=== PATIENT | female | born 1980 | race Caucasian/White ===

== ENCOUNTER → 2016-06-21 | Outpatient (CLI) | payer BC ==
--- NOTE | 2016-06-21 16:50 | Diagnostic Imaging Report ---
PROCEDURE: US OB SINGLE FETUS <14 WKS. TECHNIQUE: Multiple real-time grayscale images were obtained over the gravid uterus in various projections. INDICATION: Size and date discrepancy. FINDINGS: There is a single live intrauterine fetus present. Fetus is active in variable position. heart rate is at 165 beats per minute. Placenta is posterior. biometric measurements are BPD 2.74 cm, head circumference 10.61 cm, abdominal circumference 8.10 cm, femur length 1.43 cm with estimated weight of 97 g. Amniotic fluid index appears normal. IMPRESSION: 14 week 6 day live intrauterine . Sonographic EDC of 12/14/2016. Dictated by: Dictated on workstation # [id number]
== END ==
LOC: RAD 14:41
PROVIDERS: ATTEND Obstetrics & Gynecology
DX: O26.842 Uterine size-date discrepancy, second trimester (principal); Z3A.14 14 weeks gestation of pregnancy
CPT/HCPCS: 76801

== ENCOUNTER → 2016-10-23 | Outpatient (CLI) | payer BC ==
[~2016-10-23] MED LIST: ACET1TAB43 PO; BENZ56AE2 TP; DOCU100C37 PO; FERR-74 PO; GLYB5TAB6 PO; IBUP-1773 PO; LEVO50TA6 PO
--- NOTE | 2016-10-23 17:17 | Diagnostic Imaging Report ---
INDICATION: Gestational diabetes. TECHNIQUE: Multiple real-time grayscale images were obtained over the gravid uterus. COMPARISON: 06/21/2016 FINDINGS: The heart rate is 149 beats per minute. position is cephalic. KHADRA is 15 cm. Biophysical profile criteria are met with total score of 8 out of 8. The growth parameters are: Biparietal diameter: 31 weeks and 6 days, at 22 percentile. Head circumference: 33 weeks and 0 day, at 23 percentile. Abdominal circumference: 33 weeks and 1 day, at 64 percentile. Femur length: 33 week and 1 day, at 50 percentile. These average at: 32 weeks and 6 days, compared to 32 weeks and 4 days based on MO of 12/14/2016. IMPRESSION: Live intrauterine . Biophysical profile score is 8 out of 8. Dictated by: Dictated on workstation # [id number]
== END ==
LOC: RAD 15:45
PROVIDERS: ATTEND Obstetrics & Gynecology
DX: Z36 Encounter for antenatal screening of mother (principal); O24.415 Gestational diabetes mellitus in pregnancy, controlled by oral hypoglycemic drugs; Z3A.32 32 weeks gestation of pregnancy
CPT/HCPCS: 76805; 76819

== ENCOUNTER → 2016-11-01 | Outpatient (CLI) | payer BC ==
--- NOTE | 2016-11-01 10:46 | Diagnostic Imaging Report ---
EXAMINATION: OB ultrasound, biophysical profile. INDICATION: Gestational diabetes. FINDINGS: heart rate is 155 beats per minute. Amniotic fluid index is 14.1 cm. The placenta is posterior with no placenta previa. presentation is cephalic. The biophysical profile criteria are all met with the total score of 8 out of 8. IMPRESSION: Biophysical profile score is 8 out of 8. Dictated by: Dictated on workstation # [id number]
== END ==
LOC: RAD 08:50
PROVIDERS: ATTEND Obstetrics & Gynecology
DX: O24.415 Gestational diabetes mellitus in pregnancy, controlled by oral hypoglycemic drugs (principal); Z3A.00 Weeks of gestation of pregnancy not specified
CPT/HCPCS: 76819

== ENCOUNTER → 2016-11-08 | Outpatient (CLI) | payer BC ==
--- NOTE | 2016-11-08 13:34 | Diagnostic Imaging Report ---
INDICATION: Gestational diabetes. FINDINGS: There is single live intrauterine fetus. Fetus is vertex. heart rate of 129 beats per minute. Placenta is posterior with no evidence of previa. Placenta is estimated grade 2. There is good activity with normal breathing. Amniotic fluid index is normal. IMPRESSION: Normal biophysical profile scoring 8 of potential 8 points by ultrasound. Dictated by: Dictated on workstation # [id number]
== END ==
LOC: RAD 11:56
PROVIDERS: ATTEND Obstetrics & Gynecology
DX: O24.415 Gestational diabetes mellitus in pregnancy, controlled by oral hypoglycemic drugs (principal); Z3A.00 Weeks of gestation of pregnancy not specified
CPT/HCPCS: 76819

== ENCOUNTER 2016-12-05 19:00 | Inpatient (IN) | payer BC ==
[~2016-12-05] VITALS: Ht 162.6 cm; Wt 121.1 kg
[2016-12-05 19:20] VITALS: BP 137/92
[2016-12-05] MEDS ORDERED: NS IV 1000 ML 2,000 ML ONE (20:03)
[2016-12-05] MEDS ORDERED: MISOPROSTOL 100 MCG (CYTOTEC) TAB PO ONE (20:30)
[2016-12-05] MEDS ORDERED: NS IV 1000 ML 1,000 ML IV ONE (21:00)
[2016-12-05] MEDS ORDERED: MINERAL OIL CONCENTRATE 99.9% 15 ML UDC TOP PRN (21:00)
[2016-12-05 21:02] LABS: BASOPHILS % (AUTO) 0 % (0-10); EOSINOPHILS # (AUTO) 0.1 10^3/uL (0.0-0.3); EOSINOPHILS % (AUTO) 1 % (0-10); LYMPHOCYTES % (AUTO) 16 % (12-44); MEAN CORPUSCULAR HEMOGLOBIN 32 PG (25-34); MEAN CORPUSCULAR HGB CONC 33 G/DL (32-36); MEAN CORPUSCULAR VOLUME 96 FL (80-99); MEAN PLATELET VOLUME 10.3 FL (7.4-10.4); MONOCYTES # (AUTO) 1.2 X 10^3 (0.0-1.0); MONOCYTES % (AUTO) 10 % (0-12); NEUTROPHILS % (AUTO) 73 % (42-75); PLATELET COUNT 268 10^3/uL (130-400); RED BLOOD COUNT 3.79 10^6/uL (4.35-5.85); RED CELL DISTRIBUTION WIDTH 13.4 % (10.0-14.5); WHITE BLOOD COUNT 12.4 10^3/uL (4.3-11.0)
[2016-12-05 21:02] LABS: BILIRUBIN,URINE NEGATIVE (NEGATIVE); KETONES,URINE NEGATIVE (NEGATIVE); LEUKOCYTE ESTERASE ,URINE NEGATIVE (NEGATIVE); NITRITE,URINE NEGATIVE (NEGATIVE); PH,URINE 5 (5-9); PROTEIN,URINE 2+ (NEGATIVE); UROBILINOGEN,URINE NORMAL (NORMAL)
[2016-12-05 21:08] LABS: CALCIUM OXALATE CRYSTALS,UR MODERATE /LPF
[2016-12-05 21:13] LABS: ALANINE AMINOTRANSFERASE 19 U/L (0-55); ALBUMIN 3.2 GM/DL (3.2-4.5); ANION GAP 10 MMOL/L (5-14); ASPARTATE AMINO TRANSFERASE 13 U/L (5-34); BILIRUBIN,TOTAL 0.2 MG/DL (0.1-1.0); BLOOD UREA NITROGEN 11 MG/DL (7-18); BUN/CREATININE RATIO 17; CALCIUM 8.8 MG/DL (8.5-10.1); CARBON DIOXIDE 20 MMOL/L (21-32); CHLORIDE 110 MMOL/L (98-107); CREATININE SERUM 0.65 MG/DL (0.60-1.30); GFR ESTIMATED > 60; GLUCOSE 112 MG/DL (70-105); POTASSIUM 3.5 MMOL/L (3.6-5.0); SODIUM 140 MMOL/L (135-145)
[2016-12-05] MEDS: NS IV 1000 ML 1,000 ML IV SCH (21:14)
[2016-12-05] MEDS ORDERED: LEVO50TA6 PO (22:01)
[2016-12-05] MEDS ORDERED: GLYB5TAB6 PO (22:01)
[2016-12-05] MEDS: CATHETER FLUSH 10 ML SYR IV SCH (22:07)
[2016-12-06] VITALS (48 sets, daily range): BP systolic 90–165; BP diastolic 51–100
[2016-12-06] MEDS: MISOPROSTOL 100 MCG (CYTOTEC) TAB PO SCH ×2 (01:03→04:57)
[2016-12-06] MEDS: NS IV 1000 ML 1,000 ML IV SCH ×2 (05:00→13:23)
[2016-12-06] MEDS: CATHETER FLUSH 10 ML SYR IV SCH (06:18)
[2016-12-06] MEDS ORDERED: OXYTOCIN/NORMAL SALINE 500 ML IV SCH (08:40)
--- NOTE | 2016-12-06 09:59 | History & Physical-OB ---
OB - Chief Complaint & HPI Date/Time Date of Admission: Date of Admission: Dec 05, 2016 at 7:15 pm Time Seen by Provider: 08:20 Chief Complaint/History OB-Reason for Admission/Chief: Induction of Labor Hx : 6 Hx Para: 3 Expected Date of Delivery: Dec 14, 2016 Gestational Age in Weeks: 38 Gestational Age in Days: 6 Indication for induction: medical complication (GDMA2, AMA, Hypothyroidism) Admission Nurse Assessment Rev: Yes History of Labs A pos Antibody neg RI RPR NR HBsAg NR HIV NR GC neg GBS neg Quad screen abn + for DS, - FFC DNA Allergies and Home Medications Allergies Coded Allergies: No Known Drug Allergies (Unverified , 12/05/16) Home Medications Glyburide 5 Mg Tablet, 5 MG PO, (Reported) Levothyroxine Sodium 50 Mcg Tablet, 50 MCG PO DAILY, (Reported) OB - History Hx of Present Care: Yes Ultrasounds: Normal mid trimester US Obstetrical Complications: Gestational Diabetes, Autoimmune Disease ( Subclinical hypothyroidism), Other (Abn Quad screen, AMA) Medical Complications: None Delivery History Adverse Rxn to Tranfusion: No Patient Past Medical History BMI 38 Subclinical hypothyroidism Social History/Family History Recent Infectious Disease Expo: No Alcohol Use: Denies Use Recreational Drug Use: No Immunizations Hepatitis A: Yes Hepatitis B: Yes OB - Admission Exam Physical Exam Date Seen by Provider: Dec 06, 2016 Time Seen by Provider: 09:58 Vitals: Vital Signs 12/06/16 08:02 Temp 98.1 Pulse 88 Resp 16 B/P (MAP) 132/88 HEENT: NCAT Heart: Rhythm Normal Lungs: Clear Abdomen: Gravid Extremities: Normal Reflexes: Normal Cervical Dilatation: 3cm Effacement: 75% Station: -1 Membranes: Intact Heart Rate: 130's Accelerations: Accelerations Present Decelerations: No Decelerations Short Term Variability: Present [facility]it[facility]iary Variability: Average (6-25) Contractions on Admission: 6-10 Minutes Apart Intensity: Mild Machado Scoring Tool (Modified) Dilation (cm): 3-4cm (2) Effacement (%): 51-79% (2) Cervix Consistency: Soft (2) Cervix Position: Posterior (0) Add 1 point for: Each previous vaginal delivery (1) Machado Score: 10 Labs Laboratory Tests Test 12/05/16 19:40 12/05/16 20:33 Range/Units Urine Color YELLOW Urine Clarity CLEAR Urine pH 5 5-9 Urine Specific [place] 1.025 H 1.016-1.022 Urine Protein 2+ H NEGATIVE Urine Glucose (UA) 2+ H NEGATIVE Urine Ketones NEGATIVE NEGATIVE Urine Nitrite NEGATIVE NEGATIVE Urine Bilirubin NEGATIVE NEGATIVE Urine Urobilinogen NORMAL NORMAL MG/DL Urine Leukocyte Esterase NEGATIVE NEGATIVE Urine RBC (Auto) NEGATIVE NEGATIVE Urine RBC NONE /HPF Urine WBC NONE /HPF Urine Crystals PRESENT H /LPF Urine Calcium Oxalate Crystals MODERATE H /LPF Urine Bacteria FEW H /HPF Urine Casts NONE /LPF Urine Mucus TRACE /LPF Urine Culture Indicated NO White Blood Count 12.4 H 4.3-11.0 10^3/uL Red Blood Count 3.79 L 4.35-5.85 10^6/uL Hemoglobin 12.0 11.5-16.0 G/DL Hematocrit 36 35-52 % Mean Corpuscular Volume 96 80-99 FL Mean Corpuscular Hemoglobin 32 25-34 PG Mean Corpuscular Hemoglobin Concent 33 32-36 G/DL Red Cell Distribution Width 13.4 10.0-14.5 % Platelet Count 268 130-400 10^3/uL Mean Platelet Volume 10.3 7.4-10.4 FL Neutrophils (%) (Auto) 73 42-75 % Lymphocytes (%) (Auto) 16 12-44 % Monocytes (%) (Auto) 10 0-12 % Eosinophils (%) (Auto) 1 0-10 % Basophils (%) (Auto) 0 0-10 % Neutrophils # (Auto) 9.0 H 1.8-7.8 X 10^3 Lymphocytes # (Auto) 2.0 1.0-4.0 X 10^3 Monocytes # (Auto) 1.2 H 0.0-1.0 X 10^3 Eosinophils # (Auto) 0.1 0.0-0.3 10^3/uL Basophils # (Auto) 0.0 0.0-0.1 10^3/uL Sodium Level 140 135-145 MMOL/L Potassium Level 3.5 L 3.6-5.0 MMOL/L Chloride Level 110 H 98-107 MMOL/L Carbon Dioxide Level 20 L 21-32 MMOL/L Anion Gap 10 5-14 MMOL/L Blood Urea Nitrogen 11 7-18 MG/DL Creatinine 0.65 0.60-1.30 MG/DL Estimat Glomerular Filtration Rate > 60 BUN/Creatinine Ratio 17 Glucose Level 112 H 70-105 MG/DL Calcium Level 8.8 8.5-10.1 MG/DL Total Bilirubin 0.2 0.1-1.0 MG/DL Aspartate Amino Transf (AST/SGOT) 13 5-34 U/L Alanine Aminotransferase (ALT/SGPT) 19 0-55 U/L Alkaline Phosphatase 105 40-136 U/L Total Protein 6.0 L 6.4-8.2 GM/DL Albumin 3.2 3.2-4.5 GM/DL OB - Assessment/Plan/Diagnosis Assessment Assessment: induction of labor Plan Plan: Induction Induction Method: per Misoprostol Protocol Discharge Diagnosis Diagnosis: 36 yo @ 38.6 AMA Subclinical hypothyroidism GDMA 2 - glyburide Abn Quad +T21, Negative FFC DNA GBS neg DARYN ZAMORA DO Dec 06, 2016 9:59 am
[2016-12-06] MEDS ORDERED: SUFENTA 0.6MCG/ML BUPIVA 0.125 100 ML ONE (12:32)
[2016-12-06] MEDS ORDERED: BUPIVACAINE 0.25% 30 ML (SENSORCAINE) VIAL ONE (12:45)
[2016-12-06] MEDS ORDERED: LACTATED RINGERS 1,000 ML IV ONE (13:14)
[2016-12-06] MEDS ORDERED: ONDANSETRON 4 MG/2 ML (SDV) Z0FRAN IV PRN (13:15)
[2016-12-06] MEDS ORDERED: NALOXONE 0.4 MG/ML 1 ML (NARCAN) VIAL IV PRN (13:15)
[2016-12-06] MEDS ORDERED: EPIDURAL (SUFENTA 0.6MCG/ML BUPIVA 0.125%) 100 ML BAG EPI SCH (13:15)
[2016-12-06] MEDS ORDERED: LIDOCAINE/EPI 2% 1:200,00 (XYLOCAINE) 10 ML VIAL ONE (15:38)
[2016-12-06] MEDS: OXYTOCIN/NORMAL SALINE 500 ML IV SCH ×2 (15:59→16:28)
[2016-12-06] MEDS ORDERED: MEASLES,MUMPS,RUBELLA 1 EA INJ SQ ONE (16:15)
[2016-12-06] MEDS ORDERED: APAP 300 MG/CODEINE 30 MG (TYLENOL #3) TAB PO PRN (16:15)
[2016-12-06] MEDS ORDERED: WITCH HAZEL(TUCKS) 40 EA JAR TOP PRN (16:15)
[2016-12-06] MEDS ORDERED: TETANUS,DIPTH,PERTUSS P/F (BOOSTRIX) 0.5 ML VIAL IM ONE (16:15)
[2016-12-06] MEDS ORDERED: DIBUCAINE (NUPERCAINAL) 1% OINT 30 GM TOP PRN (16:15)
[2016-12-06] MEDS ORDERED: BENZOCAINE/MENTHOL (DERMOPLAST) 56 ML CAN TP PRN (16:15)
--- NOTE | 2016-12-06 16:22 | OB Labor & Delivery Record ---
L&D History Date of Service Date of Service: Dec 06, 2016 History Expected Date of Delivery: Dec 14, 2016 Gestational Age in Weeks: 38 Hx : 6 Hx Para: 3 Complications Events: Gestational Diabetes, Labor Augmentation, Routine care (subclinical hypothyroidism, advanced maternal age, abnormal quad screen increased risk for Down's, normal free cell DNA) Operative Indications ([place]: N/A-Vaginal Delivery Intrapartal Events: Abruptio Placenta Other Complications Episodes of prolonged bradycardia in the 80s in the second stage of labor. Repetitive variable and late decelerations during the first stage of labor. L&D Stage1 Stage One Onset of Labor - Date: Dec 06, 2016 Monitors and Tracing Monitor Mode: External Heart Rate: 130 Monitor Decelerations: Late Station: -1 Clinical Secretary Variability: Average (6-10) Short Term Variability: Present Presentation: Vertex Vital Signs VS - Last 72 Hours, by Label 12/05/16 12/05/16 12/06/16 12/06/16 19:20 20:30 00:00 04:57 Temp 99.3 98.8 99.1 Pulse 102 91 90 Resp 18 18 16 B/P (MAP) 137/92 105/51 122/62 12/06/16 12/06/16 12/06/16 08:02 09:05 09:20 Temp 98.1 Pulse 88 81 83 Resp 16 18 18 B/P (MAP) 132/88 111/67 149/93 Signs of Distress by FHT Signs of Distress There were episodes of recurrent late and variable decelerations. Late decelerations were occurring prior to placing the patient in hands and knees. Once this was done deep variable decelerations that were repetitive down into the 70s to 80s were noted. There was good return to baseline and good variability so we proceeded to attempt to deliver vaginally. In this fashion the patient progressed to complete and +1 station when an episode of prolonged bradycardia down in the 80s was noted. Rupture of Membranes Amniotic Membrane Rupture Time: 08 Amniotic Membrane Fluid Desc.: Bloody Vaginal Bleeding Description: Heavy Show Progress/Notes There was passage of blood and clots and bleeding throughout the first stage of labor suspicion for underlying placental abruption was explained with the patient however fetus remained stable onset of the patient so we proceeded with the augmentation of labor L&D Stage2 Stage Two Stage II Date: Dec 06, 2016 Monitors and Tracing Monitor Mode: External Heart Rate: 130 Monitor Decelerations: Variable Retirement Variability: Average (6-10) Short Term Variability: Present Position: Right Occiput Anterior Presentation: Vertex Cord Descript/Complications Cord Vessel Description: 3 Vessels Complications Nuchal cord reduced 1 Delivery Type Infant Delivery Method: Spontaneous Vaginal Anterior Shoulder: Right Episiotomy/Perineal Laceration Laceraction(s)/Extensions: Yes Episiotomy Description: Midline, Vaginal Extension/lac, 1st degree Degree (describe repair) Midline vaginal laceration repaired using 3-0 Rapide Vicryl Condition of Infant Delivery 1 minute Comment: 8 5 minute Comment: 9 Notes Live male infant weighing 7 lbs. 8 oz. Condition of Condition of Infant: Living Exam: No Observed Abnormalities Resuscitation Resuscitation: N/A - Spontaneous Resp L&D Stage3 Stage Three Stage III Date: Dec 06, 2016 Pictocin Pitocin Administration mu/min: 2 Pitocin ml/hr: 2 Pitocin Administration Comment: Pitocin increase to 30 mU/m at delivery of placenta Placenta Delivery Placenta Delivery: Spontaneous Delivery Summary Summary blood loss >1000ml: No Vaginal blood loss >500ml: No 350 Attending at delivery: Daryn Zamora DO Condition of Delivery Examined: Cervix Examined, Uterus Explored Post Hemorrhage: No Condition of Mother stable Condition of Infant (s) stable DARYN ZAMORA DO Dec 06, 2016 4:22 pm
[2016-12-06] MEDS: IBUPROFEN 600 MG (MOTRIN) TAB PO SCH (17:00)
[2016-12-06] MEDS ORDERED: CATHETER FLUSH 10 ML SYR IV SCH (22:00)
[2016-12-07] VITALS: BP 116/69
[2016-12-07] MEDS: IBUPROFEN 600 MG (MOTRIN) TAB PO SCH ×4 (00:01→18:20)
[2016-12-07] MEDS: DOCUSATE SODIUM 100 MG (COLACE) CAP PO SCH ×2 (00:02→09:58)
[2016-12-07 04:25] VITALS: BP 113/71
[2016-12-07 06:28] LABS: BASOPHILS % (AUTO) 0 % (0-10); EOSINOPHILS # (AUTO) 0.2 10^3/uL (0.0-0.3); EOSINOPHILS % (AUTO) 2 % (0-10); LYMPHOCYTES # (AUTO) 2.2 X 10^3 (1.0-4.0); LYMPHOCYTES % (AUTO) 17 % (12-44); MEAN CORPUSCULAR HEMOGLOBIN 32 PG (25-34); MEAN CORPUSCULAR HGB CONC 33 G/DL (32-36); MEAN CORPUSCULAR VOLUME 97 FL (80-99); MEAN PLATELET VOLUME 10.2 FL (7.4-10.4); MONOCYTES # (AUTO) 1.3 X 10^3 (0.0-1.0); MONOCYTES % (AUTO) 10 % (0-12); NEUTROPHILS # (AUTO) 8.9 X 10^3 (1.8-7.8); NEUTROPHILS % (AUTO) 71 % (42-75); PLATELET COUNT 203 10^3/uL (130-400); RED BLOOD COUNT 3.38 10^6/uL (4.35-5.85); RED CELL DISTRIBUTION WIDTH 13.3 % (10.0-14.5); WHITE BLOOD COUNT 12.7 10^3/uL (4.3-11.0)
[2016-12-07 08:00] VITALS: BP 122/81
[2016-12-07] MEDS ORDERED: BENZ56AE2 TP (09:02)
[2016-12-07] MEDS ORDERED: ACET1TAB43 PO (09:02)
[2016-12-07] MEDS ORDERED: FERR-74 PO (09:02)
[2016-12-07] MEDS ORDERED: IBUP-1773 PO (09:02)
[2016-12-07] MEDS ORDERED: DOCU100C37 PO (09:02)
--- NOTE | 2016-12-07 09:04 | Discharge Inst-Women's Service ---
Discharge Inst-Women's Serv Depart Medication/Instructions New, Converted or Re-Newed RX: RX on Chart Consults/Follow Up Additional Follow Up: Yes Orders/Referrals Dr. Zamora in 6 weeks Activity Activity: Activity as Tolerated Driving Instructions: No Driving for 1 Week NO SMOKING: NO SMOKING Nothing Inside Vagina: No Douching, No [place], No Tampons Diet Discharge Diet: No Restrictions Symptoms to Report to : Bleeding Excessive, Pain Increased, Fever Over 101 Degrees F, Vaginal Bleeding Increase, Questions/Concerns For Any Problems or Questions: Contact Your Physician Skin/Wound Care Bathing Instructions: Shower (x 2 weeks) DARYN ZAMORA DO Dec 07, 2016 09:04
--- NOTE | 2016-12-07 09:35 | Progress Note-Standard ---
Standard Progress Note Progress Notes/Assess & Plan Date Seen by Provider: Dec 07, 2016 Time Seen by Provider: 09:32 Progress/Assessment & Plan Patient doing well PPD 1 NVD. Reports good pain control, ambulating and voiding freely. Lochia light Vital Sign - Last 24 Hours 12/06/16 12/06/16 12/06/16 12/06/16 09:35 09:51 10:07 10:20 Temp 98.7 Pulse 83 88 83 85 Resp 18 18 18 18 B/P (MAP) 158/89 151/74 109/59 108/59 12/06/16 12/06/16 12/06/16 12/06/16 10:36 10:50 11:05 11:20 Pulse 81 76 73 62 Resp 18 18 18 18 B/P (MAP) 165/81 152/72 118/71 120/68 12/06/16 12/06/16 12/06/16 12/06/16 11:35 11:50 12:05 12:22 Temp 97.7 Pulse 74 62 71 82 Resp 18 18 18 18 B/P (MAP) 131/84 134/83 134/83 138/78 O2 Delivery Room Air Room Air Room Air Non Rebreather O2 Flow Rate 15.00 12/06/16 12/06/16 12/06/16 12/06/16 12:37 12:53 13:02 13:05 Pulse 88 67 78 85 Resp 18 18 18 18 B/P (MAP) 135/80 128/74 164/100 164/100 Pulse Ox 100 O2 Delivery Non Rebreather Non Rebreather Non Rebreather Non Rebreather O2 Flow Rate 15.00 15.00 15.00 15.00 17 12/06/16 12/06/16 12/06/16 13:08 13:10 13:14 13:17 Pulse 101 97 98 94 Resp 18 18 18 18 B/P (MAP) 164/100 141/72 115/51 100/51 Pulse Ox 100 O2 Delivery Non Rebreather Non Rebreather Non Rebreather Room Air O2 Flow Rate 15.00 15.00 15.00 1817 17 17 12/06/16 13:20 13:23 13:25 13:28 Pulse 90 90 95 74 Resp 18 18 18 18 B/P (MAP) 90/54 95/52 98/53 98/53 Pulse Ox 99 99 99 O2 Delivery Room Air Room Air Non Rebreather Non Rebreather O2 Flow Rate 15.00 15.00 12/06/16 12/06/16 12/06/16 12/06/16 13:30 13:34 13:36 13:40 Pulse 77 76 83 73 Resp 18 18 18 18 B/P (MAP) 94/53 94/52 96/53 104/58 Pulse Ox 100 100 100 O2 Delivery Non Rebreather Non Rebreather Non Rebreather Non Rebreather O2 Flow Rate 15.00 15.00 15.00 15.00 12/06/16 12/06/16 12/06/16 12/06/16 13:43 13:50 13:55 14:00 Pulse 59 66 62 63 Resp 18 18 18 18 B/P (MAP) 103/58 100/51 99/52 99/54 Pulse Ox 100 100 100 100 O2 Delivery Non Rebreather Non Rebreather Non Rebreather Non Rebreather O2 Flow Rate 15.00 15.00 15.00 15.00 12/06/16 12/06/16 12/06/16 12/06/16 14:15 14:30 14:45 15:02 Temp 98.4 Pulse 55 71 83 75 Resp 18 18 18 18 B/P (MAP) 97/56 106/59 104/72 106/59 Pulse Ox 100 100 O2 Delivery Non Rebreather Non Rebreather Room Air Room Air O2 Flow Rate 15.00 15.00 12/06/16 12/06/16 12/06/16 12/06/16 15:15 15:30 16:14 16:44 Temp 98.6 Pulse 74 78 91 87 Resp 18 18 18 18 B/P (MAP) 141/77 128/73 107/59 122/59 O2 Delivery Non Rebreather Non Rebreather Room Air Room Air O2 Flow Rate 15.00 15.00 12/06/16 12/06/16 12/06/16 12/07/16 16:59 17:46 19:30 00:00 Temp 97.8 Pulse 85 80 97 97 Resp 18 18 18 18 B/P (MAP) 122/55 129/75 123/70 116/69 Pulse Ox 98 98 O2 Delivery Room Air Room Air Room Air Room Air 12/07/16 12/07/16 04:25 08:00 Temp 97.2 Pulse 76 79 Resp 18 18 B/P (MAP) 113/71 122/81 Pulse Ox 100 99 O2 Delivery Room Air Room Air Uterine fundus firm and below umbilicus Laboratory Tests Test 12/06/16 21:40 12/07/16 06:10 Range/Units White Blood Count 12.7 H 4.3-11.0 10^3/uL Red Blood Count 3.38 L 4.35-5.85 10^6/uL Hemoglobin 10.7 L 11.5-16.0 G/DL Hematocrit 33 L 35-52 % Mean Corpuscular Volume 97 80-99 FL Mean Corpuscular Hemoglobin 32 25-34 PG Mean Corpuscular Hemoglobin Concent 33 32-36 G/DL Red Cell Distribution Width 13.3 10.0-14.5 % Platelet Count 203 130-400 10^3/uL Mean Platelet Volume 10.2 7.4-10.4 FL Neutrophils (%) (Auto) 71 42-75 % Lymphocytes (%) (Auto) 17 12-44 % Monocytes (%) (Auto) 10 0-12 % Eosinophils (%) (Auto) 2 0-10 % Basophils (%) (Auto) 0 0-10 % Neutrophils # (Auto) 8.9 H 1.8-7.8 X 10^3 Lymphocytes # (Auto) 2.2 1.0-4.0 X 10^3 Monocytes # (Auto) 1.3 H 0.0-1.0 X 10^3 Eosinophils # (Auto) 0.2 0.0-0.3 10^3/uL Basophils # (Auto) 0.0 0.0-0.1 10^3/uL Diagnosis PPD 1 NVD BMI 45 Subclinical hypothyroidism GDMA2 P: Continue routine pp care ANticipate dc later today or tomorrow pending release PP precautions reviewed. HBsAg had no lab report, but was marked as positive in the records. Repeat HBsAg ordered as well as core. DARYN ZAMORA DO Dec 07, 2016 9:35 am
[2016-12-07] MEDS: FERROUS SULF 325 MG (IRON) TAB PO SCH (09:58)
[2016-12-07 12:00] VITALS: BP 139/92
--- NOTE | 2016-12-07 14:22 | Anesthesia-Regional Post-Op ---
Regional Patient Condition Mental Status: Alert, Oriented x3 Circulation: Same as Pre-Op Headache: Absent Sensation: Full Recovery Motor Block: Absent Post Op Complications Complications None Follow Up Care/Instructions Patient Instructions None needed. Anesthesia/Patient Condition Patient is doing well, no complaints, stable vital signs, no apparent adverse anesthesia problems. No complications reported per nursing. BEN WAGNER CRNA Dec 07, 2016 14:22
[2016-12-07 18:20] VITALS: BP 146/96
[2016-12-07 20:00] VITALS: BP 143/82
[2016-12-08] MEDS: IBUPROFEN 600 MG (MOTRIN) TAB PO SCH ×3 (00:05→12:12)
[2016-12-08 02:30] VITALS: BP 145/90
[2016-12-08 05:31] VITALS: BP 119/64
[2016-12-08 09:15] VITALS: BP 136/84
[2016-12-08] MEDS: FERROUS SULF 325 MG (IRON) TAB PO SCH (09:53)
[2016-12-08] MEDS: DOCUSATE SODIUM 100 MG (COLACE) CAP PO SCH (09:53)
--- NOTE | 2016-12-08 10:38 | Progress Note-Standard ---
Standard Progress Note Progress Notes/Assess & Plan Date Seen by Provider: Dec 08, 2016 Time Seen by Provider: 10:20 Progress/Assessment & Plan Patient doing well PPD 2 NVD. Reports good pain control, ambulating and voiding freely. Lochia light Vital Signs 12/06/16 12/08/16 15:30 09:15 Temp 98.9 Pulse 76 Resp 18 B/P (MAP) 136/84 Pulse Ox 98 O2 Delivery Room Air O2 Flow Rate 15.00 Uterine fundus firm and below umbilicus Diagnosis PPD 2 NVD BMI 45 Subclinical hypothyroidism GDMA2 P: Continue routine pp care DC today PP precautions reviewed. DARYN ZAMORA DO Dec 08, 2016 10:38 am
[2016-12-08 12:50] VITALS: BP 136/84
[2016-12-09 15:40] LABS: HEPATITIS B SURFACE AB INDEX >1000.00 mIU/mL (>=10.00); HEPATITIS B SURFACE AB INTERP Immune (Immune)
== END 2016-12-08 12:50 | disposition home or self-care (01) | DRG 774 ==
LOC: LDRP 19:15
PROVIDERS: ADMIT Obstetrics & Gynecology; ATTEND Obstetrics & Gynecology
PROC: 3E0P7GC Introduction of Other Therapeutic Substance into Female Reproductive, Via Natural or Artificial Opening (ICD-10-PCS; 2016-12-05)
PROC: 0HQ9XZZ Repair Perineum Skin, External Approach (ICD-10-PCS; principal; 2016-12-06)
PROC: 10E0XZZ Delivery of Products of Conception, External Approach (ICD-10-PCS; 2016-12-06)
DX: O24.425 Gestational diabetes mellitus in childbirth, controlled by oral hypoglycemic drugs (principal); O99.284 Endocrine, nutritional and metabolic diseases complicating childbirth; E02 Subclinical iodine-deficiency hypothyroidism; O09.523 Supervision of elderly multigravida, third trimester; O45.93 Premature separation of placenta, unspecified, third trimester; O76 Abnormality in fetal heart rate and rhythm complicating labor and delivery; O70.0 First degree perineal laceration during delivery; Z3A.38 38 weeks gestation of pregnancy; Z37.0 Single live birth
CPT/HCPCS: 36415; 80053; 81000; 85025; 86705; 86706; 86850; 86900; 86901; 88307

== ENCOUNTER → 2017-11-27 | Outpatient (CLI) | payer BC ==
[~2017-11-27] MED LIST changes: +CATHETER FLUSH 10 ML SYR IV PRN; -FERR-74 PO; +FERR325T18 PO
--- NOTE | 2017-11-27 12:34 | Diagnostic Imaging Report ---
INDICATION: Elevated liver enzymes. FINDINGS: The patient was administered 5.2 mCi technetium 99m Choletec intravenously and imaging of the abdomen was performed. After 60 minutes, the patient ingested one can of Ensure and gallbladder ejection fraction was calculated. Homogeneous uptake of activity by the liver is seen. There is prompt excretion of activity into the gallbladder and common duct. Normal passage of activity into the small bowel is seen. Gallbladder ejection fraction is calculated to be 50%. Normal values are 35% or greater. IMPRESSION: Normal HIDA scan and gallbladder ejection fraction. Dictated by: Dictated on workstation # [id number]
== END ==
LOC: CARD 09:39
PROVIDERS: ATTEND Family Medicine
DX: R74.8 Abnormal levels of other serum enzymes (principal)
CPT/HCPCS: 78227

== ENCOUNTER → 2019-05-03 | Outpatient (CLI) | payer BC ==
[~2019-05-03] MED LIST changes: -CATHETER FLUSH 10 ML SYR IV PRN
--- NOTE | 2019-05-03 12:04 | Diagnostic Imaging Report ---
PROCEDURE: US non-OB pelvis comp/trans. TECHNIQUE: Multiple realtime grayscale images were obtained of the pelvis in various projections endovaginally. Transabdominal imaging was also performed. INDICATION: Evaluate IUD placement. FINDINGS: The uterus is anteverted measuring 8.3 x 3.9 x 5.0 cm. Endometrium is 6 mm in thickness. IUD appears to be appropriately centered in the endometrial canal. No myometrial mass is detected. Small cervical nabothian cysts are noted. Right ovary measures 2.7 x 1.7 x 1.5 cm, and the left ovary measures 2.5 x 1.4 x 1.9 cm. There is blood flow to both ovaries. No adnexal mass or free fluid is seen. IMPRESSION: IUD is appropriately centered in the endometrial canal. No significant abnormality is detected. Dictated by: Dictated on workstation # [id number]
== END ==
LOC: RAD 10:25
PROVIDERS: ATTEND Obstetrics & Gynecology
DX: T83.32XA Displacement of intrauterine contraceptive device, initial encounter (principal)
CPT/HCPCS: 76830; 76856